=== PATIENT | female | born 1930 | race Caucasian/White ===

== ENCOUNTER 2017-03-27 09:25 | Emergency (ER) | payer MEDICARE, BC ==
[2017-03-27 09:29] VITALS: BP 146/73
--- NOTE | 2017-03-27 09:46 | EDM.PDOC ---
ED HPI GENERAL MEDICAL PROBLEM - General Chief Complaint: ENT Problem Stated Complaint: NOSE BLEEDING Time Seen by Provider: 03/27/17 09:38 Source of Information: Reports: Patient History Limitations: Reports: No Limitations - History of Present Illness INITIAL COMMENTS - FREE TEXT/NARRATIVE: 86 yo white female c/o nose bleed X 2 days. Pt. take Aspirin 2 / day Onset Date: 03/26/17 Onset Time: 12:00 Duration: Day(s):, Getting Worse, Heavy Location: Reports: Face Quality: Reports: Same as Previous Episode Severity: Moderate Improves with: Reports: None Worsens with: Reports: None Associated Symptoms: Reports: No Other Symptoms - Related Data Allergies Allergy/AdvReac Type Severity Reaction Status Date / Time No Known Allergies Allergy Verified 03/27/17 09:40 Home Meds: Home Meds Aspirin [Ecotrin] 162 mg PO DAILY 03/27/17 [History] Chlorthalidone 0.5 tab PO DAILY 03/27/17 [History] atorvaSTATin [Lipitor] 20 mg PO BEDTIME 03/27/17 [History] ED ROS ENT - Review of Systems Review Of Systems: See Below Constitutional: Reports: No Symptoms HEENT: Reports: Nosebleed (left nostril) Respiratory: Reports: No Symptoms Cardiovascular: Reports: No Symptoms Endocrine: Reports: No Symptoms GI/Abdominal: Reports: No Symptoms : Reports: No Symptoms Musculoskeletal: Reports: No Symptoms Skin: Reports: No Symptoms Neurological: Reports: No Symptoms Psychiatric: Reports: No Symptoms Hematologic/Lymphatic: Reports: No Symptoms Immunologic: Reports: No Symptoms ED EXAM, ENT - Physical Exam Exam: See Below Exam Limited By: No Limitations General Appearance: Alert, WD/WN, No Apparent Distress Eye Exam: Bilateral Eye: EOMI, PERRL Ears: Normal External Exam Nose: Active Bleeding (left nostril) Mouth/Throat: Normal Inspection, Normal Gums Head: Atraumatic, Normocephalic Neck: Normal Inspection, Supple Respiratory/Chest: No Respiratory Distress, Lungs Clear Cardiovascular: Normal Peripheral Pulses, Regular Rate, Rhythm GI/Abdominal: Normal Bowel Sounds, Soft, Non-Tender Back: Normal Inspection Extremities: Normal Inspection, Normal Range of Motion Neurological: Alert, Oriented, CN II-XII Intact Psychiatric: Normal Affect, Normal Mood Skin: Warm, Dry, Intact Lymphatic: No Adenopathy ED ENT PROCEDURES - Epistaxis Procedure Indication: Epistaxis, Uncontrolled Recent anticoagulants/antiplatlets: Yes (aspirin 2 per day) Uncontrolled HTN: No Recent septal/nasal surgery: No Site of bleeding: Left Nare Posterior packing: Long Inflatable Nasal Tampon Complications: No Course - Vital Signs Last Recorded V/S: Last Vital Signs Temp 36.3 C 03/27/17 09:28 Pulse 88 03/27/17 09:28 Resp 16 03/27/17 09:28 BP 146/73 H 03/27/17 09:28 Pulse Ox 95 03/27/17 09:28 - Orders/Labs/Meds Labs: Laboratory Tests 03/27/17 03/27/17 Range/Units 09:50 09:50 WBC 7.4 (5.0-10.0) 10^3/uL RBC 3.77 L (4.2-5.4) 10^6/uL Hgb 12.0 (12.0-16.0) g/dL Hct 36.3 L (37.0-47.0) % MCV 96.3 (80-100) fL MCH 31.8 (27.0-34.0) pg MCHC 33.1 (33.0-35.0) g/dL Plt Count 242 (150-450) 10^3/uL Neut % (Auto) 64.5 (42.2-75.2) % Lymph % (Auto) 18.7 L (20.5-50.1) % [place] % (Auto) 8.5 H (2-8) % Eos % (Auto) 7.4 H (1.0-3.0) % Baso % (Auto) 0.9 (0.0-1.0) % PT 10.5 (9.0-12.0) SEC INR 1.0 (0.9-1.2) APTT 23.8 (22.0-34.0) SEC Meds: Medications Discontinued Medications Generic Name Dose Route Start Last Admin Trade Name Freq PRN Reason Stop Dose Admin Ondansetron HCl 4 mg 03/27/17 10:02 03/27/17 10:04 Zofran Odt PO 03/27/17 10:03 4 mg ONETIME ONE Administration Departure - Departure Time of Disposition: 10:50 Disposition: Home, Self-Care 01 Condition: Good Clinical Impression: Epistaxis - Discharge Information Forms: ED Department Discharge Additional Instructions: Rest Increase fluids Keep Left side nasal packing in place and f/u in E.D on Thursday for re- evaluation and possible removal
[2017-03-27] MEDS ORDERED: Ondansetron 4 MG Tab.DIS PO ONE (10:02)
== END 2017-03-27 10:55 | disposition home or self-care (01) ==
LOC: DL.ED 09:25
DX: R04.0 Epistaxis (principal); Z79.82 Long term (current) use of aspirin; Z79.899 Other long term (current) drug therapy
CPT/HCPCS: 30903; 36415; 85025; 85610; 85730; 99283; A9270

== ENCOUNTER 2017-06-09 04:12 | Emergency (ER) | payer MEDICARE, BC ==
[2017-06-09] MEDS ORDERED: Ondansetron 4 MG Tab.DIS PO ONE (04:13)
[2017-06-09] MEDS ORDERED: Diltiazem 25 MG/5 ML SDV IV ONE (04:13)
[2017-06-09 04:16] VITALS: BP 145/88
[2017-06-09] MEDS ORDERED: Oxymetazoline 0.05% Nasal Spray 15 ML Bottle NAS ONE (04:17)
--- NOTE | 2017-06-09 04:34 | EDM.PDOC ---
ED HPI GENERAL MEDICAL PROBLEM - General Chief Complaint: ENT Problem Stated Complaint: BLOODY NOSE Time Seen by Provider: 06/09/17 04:33 Source of Information: Reports: Patient History Limitations: Reports: No Limitations - History of Present Illness INITIAL COMMENTS - FREE TEXT/NARRATIVE: C/O nosebleed since 330, has had a couple over past few days that have stopped with pressure, Notes referred to ENT around 2 months ago for evaluation of previous episodes and states was told area was all healed and would not "come Back". Humidifier in home. Onset: Today - Related Data Allergies Allergy/AdvReac Type Severity Reaction Status Date / Time No Known Allergies Allergy Verified 06/09/17 04:16 Home Meds: Home Meds Aspirin [Ecotrin] 81 mg PO DAILY 03/27/17 [History] Chlorthalidone 0.5 tab PO DAILY 03/27/17 [History] atorvaSTATin [Lipitor] 20 mg PO BEDTIME 03/27/17 [History] Past Medical History HEENT History: Reports: Cataract Cardiovascular History: Reports: None Respiratory History: Reports: None Gastrointestinal History: Reports: None Genitourinary History: Reports: None [employer] History: Reports: None Musculoskeletal History: Reports: None Neurological History: Reports: None Psychiatric History: Reports: None Endocrine/Metabolic History: Reports: None Hematologic History: Reports: None Immunologic History: Reports: None Oncologic (Cancer) History: Reports: None Dermatologic History: Reports: None - Infectious Disease History Infectious Disease History: Reports: Measles - Past Surgical History HEENT Surgical History: Reports: Cataract Surgery Cardiovascular Surgical History: Reports: Coronary Artery Bypass Respiratory Surgical History: Reports: None GI Surgical History: Reports: None Female Surgical History: Reports: None Endocrine Surgical History: Reports: None Neurological Surgical History: Reports: None Musculoskeletal Surgical History: Reports: None Dermatological Surgical History: Reports: None Social & Family History - Tobacco Use Smoking Status *Q: Never Smoker Second Hand Smoke Exposure: No - Caffeine Use Caffeine Use: Reports: Tea - Recreational Drug Use Recreational Drug Use: No ED ROS ENT - Review of Systems Review Of Systems: See Below Constitutional: Reports: No Symptoms HEENT: Reports: Nosebleed (2 previous episodes today, stopped with pressure to nasal bridge, ) Respiratory: Reports: No Symptoms Cardiovascular: Reports: No Symptoms Musculoskeletal: Reports: No Symptoms Neurological: Reports: No Symptoms ED EXAM, ENT - Physical Exam Exam: See Below Exam Limited By: No Limitations General Appearance: Alert, Mild Distress Eye Exam: Bilateral Eye: EOMI Ears: Normal External Exam Nose: Active Bleeding (left posterior), Injected Turbinates (left) Mouth/Throat: Other (posterior blood present) Head: Atraumatic, Normocephalic Neck: Normal Inspection, Full Range of Motion Respiratory/Chest: No Respiratory Distress, Lungs Clear, Normal Breath Sounds Cardiovascular: Regular Rate, Rhythm, No Edema Course - Vital Signs Last Recorded V/S: Last Vital Signs Temp 97.4 F 06/09/17 04:13 Pulse 76 06/09/17 04:13 Resp 18 06/09/17 04:13 BP 145/88 H 06/09/17 04:13 Pulse Ox 97 06/09/17 04:13 - Orders/Labs/Meds Labs: Laboratory Tests 06/09/17 06/09/17 06/09/17 Range/Units 04:33 04:33 04:33 WBC 8.1 (5.0-10.0) 10^3/uL RBC 4.00 L (4.2-5.4) 10^6/uL Hgb 12.6 (12.0-16.0) g/dL Hct 38.2 (37.0-47.0) % MCV 95.5 (80-100) fL MCH 31.5 (27.0-34.0) pg MCHC 33.0 (33.0-35.0) g/dL Plt Count 241 (150-450) 10^3/uL PT 9.9 (9.0-12.0) SEC INR 1.0 (0.9-1.2) Sodium 135 (135-145) mmol/L Potassium 2.9 L (3.6-5.0) mmol/L Chloride 94 L (101-111) mmol/L Carbon Dioxide 34.0 H (21.0-31.0) mmol/L Anion Gap 9.9 BUN 26 H (7-18) mg/dL Creatinine 1.0 (0.6-1.3) mg/dL Est Cr Clr Drug Dosing 27.93 mL/min Estimated GFR (MDRD) 52 Glucose 143 H (74-105) mg/dL Calcium 9.8 (8.4-10.2) mg/dl Creatine Kinase (26-174) IU/L Troponin I (0.00-0.02) ng/ml 06/09/17 06/09/17 Range/Units 06:00 06:00 WBC (5.0-10.0) 10^3/uL RBC (4.2-5.4) 10^6/uL Hgb 12.8 (12.0-16.0) g/dL Hct 37.8 (37.0-47.0) % MCV (80-100) fL MCH (27.0-34.0) pg MCHC (33.0-35.0) g/dL Plt Count (150-450) 10^3/uL PT (9.0-12.0) SEC INR (0.9-1.2) Sodium (135-145) mmol/L Potassium (3.6-5.0) mmol/L Chloride (101-111) mmol/L Carbon Dioxide (21.0-31.0) mmol/L Anion Gap BUN (7-18) mg/dL Creatinine (0.6-1.3) mg/dL Est Cr Clr Drug Dosing mL/min Estimated GFR (MDRD) Glucose (74-105) mg/dL Calcium (8.4-10.2) mg/dl Creatine Kinase 43 (26-174) IU/L Troponin I 0.03 H* (0.00-0.02) ng/ml Meds: Medications Discontinued Medications Generic Name Dose Route Start Last Admin Trade Name Freq PRN Reason Stop Dose Admin Diltiazem HCl Confirm 06/09/17 05:39 Diltiazem Administered 06/09/17 05:40 Dose 25 mg .ROUTE .STK-MED ONE Ondansetron HCl Confirm 06/09/17 05:29 Zofran Odt Administered 06/09/17 05:30 Dose 8 mg .ROUTE .STK-MED ONE Ondansetron HCl Confirm 06/09/17 06:33 Zofran Administered 06/09/17 06:34 Dose 4 mg .ROUTE .STK-MED ONE Ondansetron HCl 8 mg 06/09/17 04:13 Zofran Odt PO 06/09/17 04:14 .STK-MED ONE Oxymetazoline HCl 1 ml 06/09/17 04:17 06/09/17 04:23 Afrin Original 0.05% Nasal [place] 06/09/17 04:18 1 ml ONETIME ONE Administration - Radiology Interpretation Free Text/Narrative:: Head CT negative - Re-Assessments/Exams Free Text/Narrative Re-Assessment/Exam: 06/11/17 02:18 See scanned document r/t EHR down time during patient encounter. Dr. Sissy Noel accepting of patient, Tx via [facility]. Departure - Departure Time of Disposition: 07:00 Disposition: DC/Tfer to Acute Hospital 02 Condition: Undetermined Clinical Impression: Atrial fibrillation, new onset, Epistaxis, recurrent Syncope Qualifiers: Syncope type: unspecified Qualified Code(s): R55 - Syncope and collapse - Discharge Information Forms: ED Department Discharge
[2017-06-09] MEDS ORDERED: Ondansetron 4 MG Tab.DIS ONE (05:29)
[2017-06-09] MEDS ORDERED: Diltiazem 25 MG/5 ML SDV ONE (05:39)
[2017-06-09] MEDS ORDERED: Ondansetron 4 MG/2 ML SDV ONE (06:33)
--- NOTE | 2017-06-11 18:57 | EKG ---
06/09/2017 - DEJON KRAUSE - FINDINGS: I reviewed the EKG rhythm with PVCs, heart rate is 118. [facility] /[id number]
== END 2017-06-09 07:01 ==
LOC: DL.ED 04:12
DX: R04.0 Epistaxis (principal); R55 Syncope and collapse; I48.91 Unspecified atrial fibrillation; Z79.82 Long term (current) use of aspirin; Z79.899 Other long term (current) drug therapy; Z95.1 Presence of aortocoronary bypass graft
CPT/HCPCS: 36415; 70450; 80048; 82550; 84484; 85014; 85018; 85027; 85610; 96374; 96375; 99284; 99285; A9270; J3490; 30901